=== PATIENT | female | born 1950 | race Caucasian/White ===

== ENCOUNTER 2017-02-04 19:37 | Inpatient (IN) | payer MEDICARE, BC ==
[~2017-02-04] VITALS: Ht 160 cm; Wt 72.6 kg
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
--- NOTE | 2017-02-04 20:15 | NUR ---
Patient's daughter, Jessica, at bedside. Patient gave verbal permission to discuss medical record/treatment while present in ER.
[2017-02-04] MEDS ORDERED: IBUP-1953 PO (20:16)
[2017-02-04] MEDS ORDERED: ISOS60TA4 PO (20:16)
[2017-02-04] MEDS ORDERED: ESCI10TA PO (20:16)
[2017-02-04] MEDS ORDERED: HALO5AMP3 IM (20:16)
[2017-02-04] MEDS ORDERED: LORA2DIS4 IM (20:16)
[2017-02-04] MEDS ORDERED: ALTE2VIA IJ (20:16)
[2017-02-04] MEDS ORDERED: LORA2TAB PO (20:16)
[2017-02-04] MEDS ORDERED: LORA1TAB PO (20:16)
[2017-02-04] MEDS ORDERED: TRAZ-144 PO (20:16)
[2017-02-04] MEDS ORDERED: LOPE2CAP PO (20:16)
[2017-02-04] MEDS ORDERED: NICO2GUM38 BC (20:16)
[2017-02-04] MEDS ORDERED: AMLO10TA2 PO (20:16)
[2017-02-04] MEDS ORDERED: MAG-55 PO (20:16)
[2017-02-04] MEDS ORDERED: QUET100T PO (20:16)
[2017-02-04] MEDS ORDERED: LEVO100T10 PO (20:16)
[2017-02-04] MEDS ORDERED: LORA2VIA6 IM (20:16)
[2017-02-04] MEDS ORDERED: ACET325T53 PO (20:16)
[2017-02-04] MEDS ORDERED: LOSA100T15 PO (20:16)
[2017-02-04] MEDS ORDERED: LIOT25TA7 PO (20:16)
[2017-02-04] MEDS ORDERED: TERA10CA4 PO (20:16)
[2017-02-04] MEDS ORDERED: BUPR-51 PO (20:16)
[2017-02-04] MEDS ORDERED: LAMO25TA4 PO (20:16)
[2017-02-04] MEDS ORDERED: QUET25TA PO (20:16)
[2017-02-04] MEDS ORDERED: DIVA250T6 PO (20:16)
[2017-02-04] MEDS ORDERED: ALBU18HF2 IH (20:16)
[2017-02-04] MEDS ORDERED: QUET200T PO (20:16)
[2017-02-04] MEDS ORDERED: OLAN10VI IM (20:16)
[2017-02-04] MEDS ORDERED: LORA2ORA5 PO (20:16)
[2017-02-04 20:38] LABS: *BILIRUBIN,URIN NEGATIVE (NEGATIVE); *BLOOD, URINE NEGATIVE (NEGATIVE); *CLARITY,URINE CLEAR (CLEAR); *COLOR,URINE YELLOW (YELLOW); *KETONES,URINE 1+ (NEGATIVE); *PROTEIN,URINE NEGATIVE (NEGATIVE); *UROBILINOGEN,URINE 0.2 E.U./dl (NORMAL); LEUKOCYTE ESTERASE ,URINE 1+ (NEGATIVE); NITRITE, URINE NEGATIVE (NEGATIVE); PH,URINE 6.5 (5.0-8.0); UGLUCOSE NEGATIVE (NEGATIVE)
[2017-02-04 20:46] LABS: ACETAMINOPHEN < 2.0 ug/mL (10-30); ALANINE AMINOTRANSFERASE 27 U/L (14-59); ALKALINE PHOSPHATASE 57 U/L (50-136); ASPARTATE AMINOTRANSFERASE 17 U/L (15-37); BILIRUBIN,DIRECT 0.2 mg/dL (0.0-0.2); BILIRUBIN,TOTAL 1.1 mg/dL (0.2-1.0); CARBON DIOXIDE 25 mmol/L (21-32); CHLORIDE 107 mmol/L (98-107); CREATININE 0.8 mg/dL (0.6-1.3); GLUCOSE 110 mg/dL (74-106); POTASSIUM 3.5 mmol/L (3.5-5.1); TOTAL PROTEIN, SERUM 6.4 g/dL (6.4-8.2); UREA NITROGEN, BLOOD 12 mg/dL (7-18)
[2017-02-04 20:47] LABS: ETHANOL < 3 MG/DL (0-0)
[2017-02-04 20:50] LABS: BASOPHILS # (AUTO) 0.1 K/uL (0.0-8.0); BASOPHILS % (AUTO) 0.7 % (0.0-2.0); EOSINOPHILS # (AUTO) 0.1 K/uL (0.0-0.7); EOSINOPHILS % (AUTO) 1.4 % (0.0-7.0); HEMATOCRIT 43.3 % (37-47); HEMOGLOBIN 14.3 G/DL (12.0-16.0); LYMPHOCYTES # (AUTO) 2.7 K/UL (0.8-4.8); LYMPHOCYTES % (AUTO) 26.8 % (20.5-51.5); MEAN CORPUSCULAR HEMOGLOBIN 28.1 UUG (27.0-31.0); MEAN CORPUSCULAR HGB CONC 33 g/dL (32.0-37.0); MEAN CORPUSCULAR VOLUME 85.3 FL (81.0-99.0); MONOCYTES % (AUTO) 9.6 % (0.0-11.0); NEUTROPHILS % (AUTO) 61.5 % (38.5-71.5); PLATELET COUNT (AUTO) 213 K/UL (150-450); RED BLOOD CELL COUNT(AUTO) 5.08 MIL/UL (4.2-5.4); WHITE BLOOD COUNT (AUTO) 9.9 K/UL (4.0-11.2)
[2017-02-04 20:51] LABS: BACTERIA,URINE RARE /HPF (NONE SEEN); RBC,URINE 0-3 /HPF (0-3); SQUAMOUS EPITHELIAL CELL,UR FEW /HPF (NONE SEEN)
[2017-02-04 20:58] LABS: *AMPHETAMINE, URINE NEGATIVE (NEGATIVE); *BARBITURATE, URINE NEGATIVE (NEGATIVE); *CANNABINOID, URINE NEGATIVE (NEGATIVE); *COCCAINE, URINE NEGATIVE (NEGATIVE); *OPIATE, URINE NEGATIVE (NEGATIVE); *PHENCYCLIDINE SCREEN,URINE NEGATIVE (NEGATIVE)
--- NOTE | 2017-02-04 21:05 | NUR ---
Pt. admitted to GPS, under care of Dr. Vivas Belongs List completed
[2017-02-04 21:20] VITALS: BP 134/94
[2017-02-04] MEDS ORDERED: TEMAZEPAM 7.5 MG CAPSULE PO PRN (22:00)
[2017-02-04] MEDS ORDERED: LORAZEPAM 1 MG TABLET PO PRN (22:00)
[2017-02-04] MEDS ORDERED: ACETAMINOPHEN 325 MG TABLET PO PRN (22:00)
[2017-02-04] MEDS ORDERED: MAG HYDROX/AL HYDROX/SIMETH 30 ML LIQUID UDC PO PRN (22:00)
[2017-02-04] MEDS ORDERED: MAGNESIUM HYDROXIDE 30 ML LIQUID UDC PO PRN (22:00)
[2017-02-04] MEDS ORDERED: TEMAZEPAM 7.5 MG CAPSULE ONE (22:50)
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
--- NOTE | 2017-02-05 06:45 | NUR ---
slept fairly for 6.45 hrs. no signs of paranoia observed through the night. vital sign are stable. maintained on safety. no apparent respiratory distress noted.
[2017-02-05 07:30] VITALS: BP 176/91
--- NOTE | 2017-02-05 08:30 | NUR ---
SPOKE WITH DR MACIAS, NOTIFIED HIM OF NEW ADMISSION.
[2017-02-05] MEDS ORDERED: LOPERAMIDE HCL 2 MG CAPSULE PO PRN (11:45)
[2017-02-05] MEDS ORDERED: ACETAMINOPHEN 325 MG TABLET PO PRN (11:45)
[2017-02-05] MEDS ORDERED: ALBUTEROL SULFATE 8 GM HFA.AER.AD IH PRN (11:45)
[2017-02-05] MEDS ORDERED: IBUPROFEN 400 MG TABLET PO PRN (11:45)
[2017-02-05 12:20] VITALS: BP 136/89
[2017-02-05] MEDS: ISOSORBIDE MONONITRATE 60 MG TAB.SR.24H PO SCH (12:36)
[2017-02-05] MEDS: TERAZOSIN 5 MG CAPSULE PO SCH (12:37)
[2017-02-05] MEDS: LOSARTAN POTASSIUM 50 MG TABLET PO SCH (12:38)
[2017-02-05] MEDS ORDERED: ALBUTEROL SULFATE 2.5 MG/3 ML NEBU NEB PRN (12:45)
[2017-02-05 15:25] VITALS: BP 115/68
--- NOTE | 2017-02-05 17:30 | NUR ---
SPOKE WITH AVE TOPETE, NOTIFIED OF EKG RESULTS (TACHY WITH PVC) NO NEW ORDERS.
[2017-02-05] MEDS: LIOTHYRONINE SODIUM 25 MCG TABLET PO SCH (17:38)
[2017-02-05 19:30] VITALS: BP_SYST 121; BP_SYST 80; BP_DIAS 61; BP_DIAS 90
[2017-02-05] MEDS: DIVALPROEX 250 MG TABLET.DR PO SCH (20:45)
[2017-02-05] MEDS: QUETIAPINE FUMARATE 25 MG TABLET PO SCH (20:45)
--- NOTE | 2017-02-05 22:00 | NUR ---
received to care, in activity room with peers, pleasant, and appropriate, upon approach. compliant with medications, and staff direction. other than being slightly anxious, her behavior is appropriate for situation. as of 0, she appears to be asleep. no distress noted. will continue to monitor closely.
[2017-02-06] MEDS: LIOTHYRONINE SODIUM 25 MCG TABLET PO SCH ×2 (06:09→17:37)
[2017-02-06] MEDS: LEVOTHYROXINE SODIUM 100 MCG TABLET PO SCH (06:09)
--- NOTE | 2017-02-06 06:19 | NUR ---
slept 8.5 hours, total. is now awake, sitting in her room. no distress noted.
[2017-02-06 07:30] VITALS: BP 103/68
[2017-02-06] MEDS: QUETIAPINE FUMARATE 25 MG TABLET PO SCH ×3 (08:35→21:25)
[2017-02-06] MEDS: DIVALPROEX 250 MG TABLET.DR PO SCH ×2 (08:36→21:25)
[2017-02-06] MEDS: ESCITALOPRAM OXALATE 10 MG TABLET PO SCH (08:36)
[2017-02-06] MEDS: TERAZOSIN 5 MG CAPSULE PO SCH (09:00)
[2017-02-06] MEDS ORDERED: LEVOTHYROXINE SODIUM 100 MCG TABLET PO SCH (09:00)
[2017-02-06] MEDS: LOSARTAN POTASSIUM 50 MG TABLET PO SCH (09:00)
[2017-02-06] MEDS: AMLODIPINE 10 MG TABLET PO SCH (09:00)
[2017-02-06] MEDS: ISOSORBIDE MONONITRATE 60 MG TAB.SR.24H PO SCH (09:00)
--- NOTE | 2017-02-06 11:17 | NUR ---
B/P at 0800 was 103/ 59 Hr-98, patient asymptomatic, antihypertensive medications held until recheck. Patient on multiple psych medications that will contribute low B/P. 1110 Rechecked B/P -91/60 HR- 97/min. Patient denies dizziness.
[2017-02-06] MEDS: CEPHALEXIN MONOHYDRATE 250 MG CAPSULE PO SCH ×3 (12:13→22:21)
--- NOTE | 2017-02-06 14:16 | NUR ---
Initial Discharge Instructions: Pt was residing at home with caregivers [[place],[address];[phone]].Per pt,she would like to return home or [facility] [[address] [place] [id number]].Spoke with pt's daughter,Jessica [phone] who reported the pt will be discharged to the [facility].SW will speak with pt,family,and MD regarding appropriate discharge plans.SW will form a safe and proper discharge.
[2017-02-06 15:00] VITALS: BP 136/78
[2017-02-06 20:28] VITALS: BP 108/65
--- NOTE | 2017-02-06 21:29 | NUR ---
PATIENT RECEIVED IN BED AWAKE. PATIENT PLEASANT UPON APPROACH, CALM, AND COOPERATIVE. PATIENT INTERACTS WITH STAFF AND PEERS. NO AGITATION, NO AGGRESSIVE OR COMBATIVE BEHAVIOR NOTED. PATIENT COMPLAINT WITH MEDICATION. PATIENT DENIES PAIN AT THIS TIME, WILL CONTINUE TO MONITOR.
[2017-02-07 07:30] VITALS: BP 135/84
[2017-02-07] MEDS: ISOSORBIDE MONONITRATE 60 MG TAB.SR.24H PO SCH (09:00)
[2017-02-07] MEDS: TERAZOSIN 5 MG CAPSULE PO SCH (09:00)
[2017-02-07] MEDS: AMLODIPINE 10 MG TABLET PO SCH (09:00)
[2017-02-07] MEDS: ESCITALOPRAM OXALATE 10 MG TABLET PO SCH (09:00)
[2017-02-07] MEDS: LOSARTAN POTASSIUM 50 MG TABLET PO SCH (09:00)
[2017-02-07] MEDS: CEPHALEXIN MONOHYDRATE 250 MG CAPSULE PO SCH ×2 (14:00→21:37)
[2017-02-07 15:10] VITALS: BP 101/60
[2017-02-07] MEDS: LIOTHYRONINE SODIUM 25 MCG TABLET PO SCH (16:30)
[2017-02-07] MEDS: QUETIAPINE FUMARATE 25 MG TABLET PO SCH ×2 (16:31→20:14)
[2017-02-07 20:08] VITALS: BP 104/61
[2017-02-07] MEDS: DIVALPROEX 250 MG TABLET.DR PO SCH (20:14)
[2017-02-08] MEDS: CEPHALEXIN MONOHYDRATE 250 MG CAPSULE PO SCH ×3 (06:08→22:20)
[2017-02-08] MEDS: LEVOTHYROXINE SODIUM 100 MCG TABLET PO SCH (06:09)
[2017-02-08] MEDS: LIOTHYRONINE SODIUM 25 MCG TABLET PO SCH ×2 (06:09→18:56)
[2017-02-08 07:30] VITALS: BP 124/71
[2017-02-08] MEDS: ESCITALOPRAM OXALATE 10 MG TABLET PO SCH (08:40)
[2017-02-08] MEDS: ISOSORBIDE MONONITRATE 60 MG TAB.SR.24H PO SCH (08:40)
[2017-02-08] MEDS: QUETIAPINE FUMARATE 25 MG TABLET PO SCH ×3 (08:41→20:32)
[2017-02-08] MEDS: DIVALPROEX 250 MG TABLET.DR PO SCH ×2 (08:41→20:32)
[2017-02-08] MEDS: LOSARTAN POTASSIUM 50 MG TABLET PO SCH (08:47)
[2017-02-08] MEDS: TERAZOSIN 5 MG CAPSULE PO SCH (08:47)
[2017-02-08] MEDS: AMLODIPINE 10 MG TABLET PO SCH (08:48)
[2017-02-08 15:00] VITALS: BP 139/77
[2017-02-08 20:22] VITALS: BP 128/76
[2017-02-09] MEDS: CEPHALEXIN MONOHYDRATE 250 MG CAPSULE PO SCH ×3 (06:58→21:59)
[2017-02-09] MEDS: LIOTHYRONINE SODIUM 25 MCG TABLET PO SCH ×2 (07:00→17:35)
[2017-02-09] MEDS: LEVOTHYROXINE SODIUM 100 MCG TABLET PO SCH (07:01)
[2017-02-09 07:30] VITALS: BP 132/86
[2017-02-09] MEDS: DIVALPROEX 250 MG TABLET.DR PO SCH ×2 (09:13→21:00)
[2017-02-09] MEDS: LOSARTAN POTASSIUM 50 MG TABLET PO SCH (09:14)
[2017-02-09] MEDS: TERAZOSIN 5 MG CAPSULE PO SCH (09:14)
[2017-02-09] MEDS: ISOSORBIDE MONONITRATE 60 MG TAB.SR.24H PO SCH (09:14)
[2017-02-09] MEDS: ESCITALOPRAM OXALATE 10 MG TABLET PO SCH (09:14)
[2017-02-09] MEDS: AMLODIPINE 10 MG TABLET PO SCH (09:14)
[2017-02-09] MEDS: QUETIAPINE FUMARATE 25 MG TABLET PO SCH ×3 (09:15→21:00)
--- NOTE | 2017-02-09 09:15 | NUR ---
PHARMACY NOTE CYTOMEL UNAVAILABLE. 0700 DOSE NOT GIVEN
[2017-02-09 16:38] VITALS: BP 128/59
[2017-02-09 20:39] VITALS: BP 101/61
--- NOTE | 2017-02-09 22:10 | NUR ---
PATIENT RECEIVED IN BED AWAKE. PATIENT PLEASANT UPON APPROACH, CALM, AND COOPERATIVE. PATIENT INTERACTS WITH STAFF AND PEERS. NO AGITATION, NO AGGRESSIVE OR COMBATIVE BEHAVIOR NOTED. PATIENT COMPLAINT WITH MEDICATION, ANTIBIOTIC, HELD DEPAKOTE,SEROQUEL DUE TO DECREASED BLOOD PRESSURE RECHECKED X3 TIMES, PATIENT HAD A BOTTLE WATER BLOOD PRESSURE 94/56, 101/54, 100/56. PATIENT DENIES PAIN AT THIS TIME, WILL CONTINUE TO MONITOR.
[2017-02-10] MEDS: LEVOTHYROXINE SODIUM 100 MCG TABLET PO SCH (06:20)
[2017-02-10] MEDS: LIOTHYRONINE SODIUM 25 MCG TABLET PO SCH ×2 (06:20→17:59)
[2017-02-10] MEDS: CEPHALEXIN MONOHYDRATE 250 MG CAPSULE PO SCH ×3 (06:20→23:08)
[2017-02-10 07:30] VITALS: BP 123/71
[2017-02-10] MEDS: LOSARTAN POTASSIUM 50 MG TABLET PO SCH (08:57)
[2017-02-10] MEDS: QUETIAPINE FUMARATE 25 MG TABLET PO SCH ×3 (08:57→21:38)
[2017-02-10] MEDS: ESCITALOPRAM OXALATE 10 MG TABLET PO SCH (08:58)
[2017-02-10] MEDS: AMLODIPINE 10 MG TABLET PO SCH (09:00)
[2017-02-10] MEDS: TERAZOSIN 5 MG CAPSULE PO SCH (09:00)
[2017-02-10] MEDS: ISOSORBIDE MONONITRATE 60 MG TAB.SR.24H PO SCH (09:00)
[2017-02-10] MEDS: DIVALPROEX 250 MG TABLET.DR PO SCH ×2 (09:00→21:37)
[2017-02-10 16:32] VITALS: BP 97/58
[2017-02-10 20:50] VITALS: BP 119/63
--- NOTE | 2017-02-10 22:15 | NUR ---
PATIENT RECEIVED IN BED AWAKE. PATIENT PLEASANT UPON APPROACH, CALM, AND COOPERATIVE. PATIENT INTERACTS WITH STAFF AND PEERS. NO AGITATION, NO AGGRESSIVE OR COMBATIVE BEHAVIOR NOTED. PATIENT COMPLAINT WITH MEDICATION/CARE/DIET. PATIENT DENIES PAIN AT THIS TIME, WILL CONTINUE TO MONITOR.
[2017-02-11] MEDS: LEVOTHYROXINE SODIUM 100 MCG TABLET PO SCH (06:39)
[2017-02-11] MEDS: LIOTHYRONINE SODIUM 25 MCG TABLET PO SCH ×2 (06:40→17:11)
[2017-02-11] MEDS: CEPHALEXIN MONOHYDRATE 250 MG CAPSULE PO SCH (06:40)
[2017-02-11] MEDS ORDERED: CEPHALEXIN MONOHYDRATE 250 MG CAPSULE ONE (06:45)
[2017-02-11 07:30] VITALS: BP 125/81
[2017-02-11] MEDS: QUETIAPINE FUMARATE 25 MG TABLET PO SCH ×3 (08:39→20:33)
[2017-02-11] MEDS: AMLODIPINE 10 MG TABLET PO SCH (09:00)
[2017-02-11] MEDS: ISOSORBIDE MONONITRATE 60 MG TAB.SR.24H PO SCH (09:00)
[2017-02-11] MEDS: LOSARTAN POTASSIUM 50 MG TABLET PO SCH (09:00)
[2017-02-11] MEDS: ESCITALOPRAM OXALATE 10 MG TABLET PO SCH (09:00)
[2017-02-11] MEDS: TERAZOSIN 5 MG CAPSULE PO SCH (09:00)
[2017-02-11] MEDS: DIVALPROEX 250 MG TABLET.DR PO SCH ×2 (09:51→20:32)
[2017-02-11 16:58] VITALS: BP 155/84
[2017-02-11 20:05] VITALS: BP 130/74
[2017-02-12] MEDS: LEVOTHYROXINE SODIUM 100 MCG TABLET PO SCH (06:31)
[2017-02-12] MEDS: LIOTHYRONINE SODIUM 25 MCG TABLET PO SCH (06:34)
--- NOTE | 2017-02-12 06:55 | NUR ---
CALM AND PLEASANT THROUGHOUT THE SHIFT. NO AGGRESSIVE BEHAVIORS. SLEPT 6.5
[2017-02-12 07:30] VITALS: BP 136/94
[2017-02-12] MEDS: TERAZOSIN 5 MG CAPSULE PO SCH (08:11)
[2017-02-12] MEDS: ISOSORBIDE MONONITRATE 60 MG TAB.SR.24H PO SCH (08:16)
[2017-02-12] MEDS: AMLODIPINE 10 MG TABLET PO SCH (08:16)
[2017-02-12 08:17] VITALS: BP 136/94
[2017-02-12] MEDS: LOSARTAN POTASSIUM 50 MG TABLET PO SCH (08:17)
[2017-02-12] MEDS: QUETIAPINE FUMARATE 25 MG TABLET PO SCH (09:56)
[2017-02-12] MEDS: ESCITALOPRAM OXALATE 10 MG TABLET PO SCH (09:56)
[2017-02-12] MEDS: DIVALPROEX 250 MG TABLET.DR PO SCH (09:56)
--- NOTE | 2017-02-12 10:55 | NUR ---
DC Note: Patient will be discharged to [facility] [[address] [place] [address]; [phone]] via private transportation at 1:00 pm. Spoke with patients daughterJessica who confirmed that she arranged transportation with [facility] [facility]. Spoke with Dorys at the facility who stated that they will be accepting the patient today. Patient will follow-up at the facility with Dr. Das (Health Information Management Director) [ ] and Dr. Arechiga (Psychiatrist) [ ]. Spoke with patients daughter Jessica who is aware and agreeable with discharge plans. Patient is aware and agreeable with discharge plans. Addendum: 02/12/17 at 1253 by LAMONT HUTCHINS CORRECTED ADDRESS AND PHONE NUMBER for [facility]: [address] [place] [address]; .
--- NOTE | 2017-02-12 13:15 | NUR ---
PT D/C TO [facility] [ [address] [place] [id number]] .PT WILL FOLLOW UP WITH DR. BOWEN AND DR. BAKER. SHE WAS D/C WITH ALL BELONGINGS, VALUABLES, EXITCARE PACKET, INFORMATION PACKET, AND PRESCRIPTIONS.PT IS STABLE FOR D/C, V/S STABLE, SKIN INTACT,AOX3, CALM, COOPERATIVE, DENIES SUICIDAL IDEATION AND HOMICIDAL IDEATION AT THIS TIME. REPORT WAS ENDORSED TO RALPH AN PAINTER AND BODY WORK AT [facility].
== END 2017-02-12 13:15 | DRG 885 ==
LOC: ER 19:40 → GPS 20:58
PROVIDERS: ADMIT Psychiatry & Neurology Psychiatry; ATTEND Nurse Practitioner Acute Care
DX: F31.60 Bipolar disorder, current episode mixed, unspecified (principal); E87.0 Hyperosmolality and hypernatremia; N39.0 Urinary tract infection, site not specified; E66.9 Obesity, unspecified; F41.9 Anxiety disorder, unspecified; I10 Essential (primary) hypertension; R56.9 Unspecified convulsions; F10.21 Alcohol dependence, in remission; E03.9 Hypothyroidism, unspecified; R73.9 Hyperglycemia, unspecified; E80.6 Other disorders of bilirubin metabolism; F19.11 Other psychoactive substance abuse, in remission; Z68.28 Body mass index [BMI] 28.0-28.9, adult; I49.3 Ventricular premature depolarization; Z86.011 Personal history of benign neoplasm of the brain; Z96.643 Presence of artificial hip joint, bilateral
CPT/HCPCS: 36415; 71010; 80164; 80307; 84295; 85025; 93005; A4663; G0480; G0480-TC; J3490; J8499